=== PATIENT | male | born 1935 | race Caucasian/White ===

== ENCOUNTER 2019-11-12 13:49 | Emergency (ER) | payer MEDICARE, BC ==
[~2019-11-12] VITALS: Ht 172.7 cm; Wt 81.8 kg
[2019-11-12 14:16] VITALS: Ht 172.7 cm; Wt 81.8 kg
[2019-11-12] MEDS ORDERED: DIOVAN80 MG (14:21)
[2019-11-12] MEDS ORDERED: LIPITOR10 MG (14:21)
[2019-11-12] MEDS ORDERED: STOOL SOFTENER100 M1 (14:22)
[2019-11-12] MEDS ORDERED: ELIQUIS5 MG (14:22)
[2019-11-12] MEDS ORDERED: FUROSEMIDE20 MG (14:22)
[2019-11-12] MEDS ORDERED: MINOCYCLINE HC100 M1 (14:22)
[2019-11-12] MEDS ORDERED: DIGOXIN250 MCG (14:22)
[2019-11-12 15:14] LABS: ANION GAP 11.4 mmol/L (8-16); BASOPHILS 0.7 % (0-2); CALCIUM 9.6 mg/dL (8.5-10.1); CARBON DIOXIDE 27.9 mmol/L (21.0-32.0); CREATININE - SERUM 1.5 mg/dL (0.6-1.3); EOSINOPHILS 5.9 % (0-7); HEMATOCRIT 42.2 % (42.0-54.0); HEMOGLOBIN 14.2 g/dL (13.5-17.5); IMMATURE GRANULOCYTES 0.6 % (0-5); LYMPHOCYTES 23.8 % (15-50); MCH 32.3 pg (26.0-34.0); MCHC 33.6 g/dL (31.0-37.0); MCV 95.9 fL (80.0-100.0); MEAN PLATELET VOLUME 10.7 fL (7.4-10.4); MONOCYTES 9.4 % (2-11); NEUTROPHILS 59.6 % (40-80); PLATELET COUNT 182 10x3/uL (130-400); POTASSIUM - SERUM 4.3 mmol/L (3.5-5.1); RDW 13.1 % (11.5-14.5); WBC 8.3 10x3/uL (4.8-10.8)
[2019-11-12 15:24] LABS: ALBUMIN 3.9 g/dL (3.4-5.0); BILIRUBIN - TOTAL 0.74 mg/dL (0.2-1.3); PROTEIN - SERUM 7.1 g/dL (6.4-8.2); TROPONIN-I 0.018 ng/mL (0.000-0.060)
[2019-11-12] MEDS ORDERED: MECLIZINE HCL25 MG PO (18:30)
[2019-11-12 18:58] VITALS: BP 162/69
== END 2019-11-12 18:50 | disposition home or self-care (01) ==
LOC: D.ER 13:49
PROVIDERS: Emergency Medicine
DX: R42 Dizziness and giddiness (principal); E86.0 Dehydration; I50.9 Heart failure, unspecified; I25.10 Atherosclerotic heart disease of native coronary artery without angina pectoris; Z95.5 Presence of coronary angioplasty implant and graft; I48.91 Unspecified atrial fibrillation

== ENCOUNTER → 2020-07-20 10:35 | Outpatient (CLI) | payer MEDICARE, BC ==
[2019-11-12 14:16] VITALS: BMI 27.4
[~2020-07-20 10:35] MED LIST: DIGOXIN250 MCG; DIOVAN80 MG; ELIQUIS5 MG; FUROSEMIDE20 MG; LIPITOR10 MG; MECLIZINE HCL25 MG PO; MINOCYCLINE HC100 M1; STOOL SOFTENER100 M1
== END | disposition home or self-care (01) ==
LOC: D.HCCECHO 10:35
PROVIDERS: ATTEND Internal Medicine Cardiovascular Disease
DX: I25.10 Atherosclerotic heart disease of native coronary artery without angina pectoris (principal)